=== PATIENT | female | born 1990 | race Caucasian/White ===

== ENCOUNTER → 2017-12-17 | Outpatient (CLI) | payer BC ==
[~2017-12-17] MED LIST: IBUP800 PO; Lopressor 50 mg50 MG GT; OXYACE5T PO; PRENATAL CAPLE1 EACH PO
[2017-12-18 10:33] LABS: Source ENDOCERVICAL
== END ==
LOC: LAB 15:43
PROVIDERS: Nurse Practitioner
DX: Z01.419 Encounter for gynecological examination (general) (routine) without abnormal findings (principal)
CPT/HCPCS: G0145

== ENCOUNTER → 2019-01-08 | Outpatient (CLI) | payer BC | END | disposition home or self-care (01) | LOC: LAB 19:03 → LAB SHORT 19:03 | PROVIDERS: Nurse Practitioner | DX: Z01.419 Encounter for gynecological examination (general) (routine) without abnormal findings (principal) | CPT/HCPCS: G0145 ==

== ENCOUNTER → 2019-12-29 | Outpatient (CLI) | payer BC | END | disposition home or self-care (01) | LOC: LAB SHORT 16:00 → LAB 16:00 | DX: Z34.93 Encounter for supervision of normal pregnancy, unspecified, third trimester (principal) | CPT/HCPCS: 87081; 87653 ==

== ENCOUNTER 2020-02-02 05:19 | Inpatient (IN) | payer BC ==
[~2020-02-02] VITALS: Ht 170.2 cm; Wt 90.9 kg
[2020-02-02] MEDS ORDERED: PRENATAL TABLE1 EAC2 PO (05:51)
[2020-02-02] MEDS ORDERED: FERSU300 PO (05:52)
[2020-02-02 06:08] LABS: BASOPHILS ABSOLUTE AUTO 0.04 K/mm3 (0.00-0.23); BASOPHILS PERCENT AUTO 0 % (0-2); EOSINOPHILS ABSOLUTE AUTO 0.11 K/mm3 (0.00-0.68); EOSINOPHILS PERCENT AUTO 1 % (0-6); Hematocrit 37.4 % (33.0-51.0); Hemoglobin 12.2 g/dL (11.5-16.0); IMMATURE GRAN ABSOLUTE AUTO 0.04 K/mm3 (0.00-0.10); IMMATURE GRAN PERCENT AUTO 0 % (0-1); LYMPHOCYTES ABSOLUTE AUTO 3.72 K/mm3 (0.84-5.20); LYMPHOCYTES PERCENT AUTO 27 % (21-46); MONOCYTES ABSOLUTE AUTO 0.62 K/mm3 (0.16-1.47); MONOCYTES PERCENT AUTO 5 % (4-13); Mean Corpuscular HGB Conc 32.6 g/dL (31.5-36.5); Mean Corpuscular Volume 92 fL (80-100); Mean Platelet Volume 9.9 fL (9.1-12.4); NEUTROPHILS ABSOLUTE AUTO 9.25 K/mm3 (1.96-9.15); NEUTROPHILS PERCENT AUTO 67 % (41-73); Platelet Count 308 K/mm3 (150-400); RDW Coefficient Variation 13.9 % (11.7-14.2); RDW Standard Deviation 47.2 fL (35.1-46.3); Red Blood Cell Count 4.06 M/mm3 (3.80-5.20); White Blood Cell Count 13.78 K/mm3 (4.00-11.30)
--- NOTE | 2020-02-02 17:45 | NUR ---
02/02/20 1111 Alyx Marques PT TO OR WITH STOVER IN PLACE. EPIDURAL IN PLACE AND PLAN TO USE FOR PAIN MANGEMENT DURING PROCEDURE. DELIVERY OF VIABLE MALE . APGARS 9/9. WEIGHT 3085 GRMS. PLACENTA DELIVERED COMPLETE.
[2020-02-02 17:48] LABS: PCO2 Cord - Arterial 53.4 mmHg (40-50); PO2 Cord - Arterial 21.4 mmHg (16-20); pH Cord - Arterial 7.27 (7.28-7.35)
[2020-02-02 17:50] LABS: PCO2 Cord - Venous 38.4 mmHg (40-50); PO2 Cord - Venous 34.9 mmHg (28-32); pH Umbilical Cord - Venous 7.36 (7.26-7.35)
[2020-02-03 06:00] LABS: Hematocrit 29.1 % (33.0-51.0); Hemoglobin 9.5 g/dL (11.5-16.0); Mean Corpuscular HGB 30.1 pg (26.0-34.0); Mean Corpuscular HGB Conc 32.6 g/dL (31.5-36.5); Mean Corpuscular Volume 92 fL (80-100); Mean Platelet Volume 9.8 fL (9.1-12.4); Platelet Count 245 K/mm3 (150-400); RDW Coefficient Variation 13.6 % (11.7-14.2); RDW Standard Deviation 46.3 fL (35.1-46.3); Red Blood Cell Count 3.16 M/mm3 (3.80-5.20)
--- NOTE | 2020-02-03 18:50 | NUR ---
PT STOVERCOLTEN SOLIS DANGLED AT BEDSIDE UP TO BAATHROOM VOIDED AND THEN UP TO CHAIR FOR 30 MIN
[2020-02-04] MEDS ORDERED: Percocet 5-3251 EACH PO (11:13)
[2020-02-04] MEDS ORDERED: IBUP800 PO (11:13)
== END 2020-02-04 13:30 | disposition home or self-care (01) | DRG 788 ==
LOC: BC 05:19
PROVIDERS: ADMIT Obstetrics & Gynecology
PROC: 3E033VJ Introduction of Other Hormone into Peripheral Vein, Percutaneous Approach (ICD-10-PCS; 2020-02-02)
PROC: 10907ZC Drainage of Amniotic Fluid, Therapeutic from Products of Conception, Via Natural or Artificial Opening (ICD-10-PCS; 2020-02-02)
PROC: 3E0R3BZ Introduction of Anesthetic Agent into Spinal Canal, Percutaneous Approach (ICD-10-PCS; 2020-02-02)
PROC: 10D00Z1 Extraction of Products of Conception, Low, Open Approach (ICD-10-PCS; principal; 2020-02-02 16:45)
DX: O48.0 Post-term pregnancy (principal); O76 Abnormality in fetal heart rate and rhythm complicating labor and delivery; O34.211 Maternal care for low transverse scar from previous cesarean delivery; O77.0 Labor and delivery complicated by meconium in amniotic fluid; O69.81X0 Labor and delivery complicated by cord around neck, without compression, not applicable or unspecified; Z3A.40 40 weeks gestation of pregnancy; Z37.0 Single live birth; O61.0 Failed medical induction of labor
CPT/HCPCS: 36415; 51702; 82803; 85025; 85027; 86850; 86900; 86901; J1580; J1885; J2001; J2590; J2765; J3010; J7120

== ENCOUNTER → 2020-09-03 | Outpatient (CLI) | payer BC ==
[~2020-09-03] MED LIST changes: +FERSU300 PO; +PRENATAL TABLE1 EAC2 PO; +Percocet 5-3251 EACH PO
== END | disposition home or self-care (01) ==
LOC: LAB EV 10:15 → LAB SHORT 10:15
DX: J02.9 Acute pharyngitis, unspecified (principal)
CPT/HCPCS: 87081

== ENCOUNTER → 2024-01-07 | Outpatient (CLI) | payer BC ==
[2024-01-15 13:12] LABS: HPV GENOTYPE 16 Not Detected; HPV GENOTYPE 18 Not Detected; HPV HIGH RISK Not Detected; HPV SOURCE Cervical
== END ==
LOC: LAB 11:41 → LAB SHORT 11:41
PROVIDERS: Family Medicine
DX: Z01.419 Encounter for gynecological examination (general) (routine) without abnormal findings (principal)
CPT/HCPCS: 87624; G0123

== ENCOUNTER → 2024-06-24 | Outpatient (CLI) | payer BC | LOC: LAB 13:34 → LAB SHORT 13:34 | DX: R30.0 Dysuria (principal) | CPT/HCPCS: 87086 ==